=== PATIENT | male | born 1945 | race Caucasian/White ===

== ENCOUNTER → 2021-10-03 | Outpatient (CLI) | payer OTHER ==
--- NOTE | 2021-10-03 21:51 | RAD ---
Right Lower Extremity Venous Doppler: Reason for examination: Right lower extremity pain and swelling. The right lower extremity venous system was evaluated from the common femoral and greater saphenous v eins distally to the calf veins with griffin scale imaging, color flow imaging and spectral analysis. There is normal blood flow without deep venous thrombosis. There is normal response of the venous sys tem to compression and augmentation. Impression: No deep venous thrombosis in the right lower extremity venous system. Electronically signed by: Sweetie Gardner MD (10/03/2021 9:49 PM) BETO
== END ==
LOC: RAD 18:35
PROVIDERS: ATTEND Emergency Medicine
DX: R60.0 Localized edema (principal); Z98.62 Peripheral vascular angioplasty status
CPT/HCPCS: 93971